=== PATIENT | male | born 1985 | race Caucasian/White ===

== ENCOUNTER 2018-04-10 21:11 | Emergency (ER) | payer OTHER ==
[~2018-04-10] VITALS: Ht 172.7 cm; Wt 78.5 kg
--- NOTE | 2018-04-10 21:11 | NUR ---
Patient NANCYShivani SEBASTIAN, triaged by RN. Waiting for an available bed.
[2018-04-10 21:15] VITALS: BP 124/71
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
--- NOTE | 2018-04-10 21:32 | NUR ---
Patient transferred to bed 8. Dr. Ramos and RN evaluating patient at bedside.
[2018-04-10] MEDS ORDERED: DIAZEPAM 5 MG TAB PO ONE (21:50)
[2018-04-10] MEDS ORDERED: BACITRACIN OINT 500 UNITS/GM PKT TP ONE (21:50)
[2018-04-10] MEDS ORDERED: KETOROLAC 30 MG/ML VIAL IM ONE (21:50)
--- NOTE | 2018-04-10 21:50 | NUR ---
electrophysiology tech at bedside.
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
--- NOTE | 2018-04-10 22:24 | NUR ---
Dr. Ramos re-evaluating patient at bedside.
--- NOTE | 2018-04-10 22:30 | NUR ---
Patient discharged with v/s stable. Written and verbal after care instructions given and explained. Patient alert, oriented and verbalized understanding of instructions. Ambulatory with steady gait. All questions addressed prior to discharge. ID band removed. Patient advised to follow up with PMD. Rx of VALIUM 5 MG, NAPROSYN 500 MG given. Patient educated on indication of medication including possible reaction and side effects. Opportunity to ask questions provided and answered.
[2018-04-10 22:32] VITALS: BP 106/62
== END 2018-04-10 22:30 | disposition home or self-care (01) ==
LOC: MED 21:11
DX: S40.012A Contusion of left shoulder, initial encounter (principal); V89.2XXA Person injured in unspecified motor-vehicle accident, traffic, initial encounter; Y93.89 Activity, other specified; Y92.89 Other specified places as the place of occurrence of the external cause; Y99.8 Other external cause status
CPT/HCPCS: 71045; 96372; 99283; J1885